=== PATIENT | male | born 1985 | race Two or more races ===

== ENCOUNTER → 2023-06-05 09:12 | Outpatient (BNVA) | payer OTHER, SELFPAY | PROVIDERS: Visit Provider Physician Assistant Medical | DX: S06.9X0A Unspecified intracranial injury without loss of consciousness, initial encounter (principal); S16.1XXA Strain of muscle, fascia and tendon at neck level, initial encounter; S33.9XXA Sprain of unspecified parts of lumbar spine and pelvis, initial encounter; W19.XXXA Unspecified fall, initial encounter | CPT/HCPCS: 99203 ==

== ENCOUNTER → 2023-06-12 13:03 | Outpatient (BNVA) | payer OTHER, SELFPAY | PROVIDERS: Visit Provider Physician Assistant Medical | DX: S06.0X0A Concussion without loss of consciousness, initial encounter (principal); S16.1XXA Strain of muscle, fascia and tendon at neck level, initial encounter; S33.9XXA Sprain of unspecified parts of lumbar spine and pelvis, initial encounter; W19.XXXA Unspecified fall, initial encounter | CPT/HCPCS: 99213 ==

== ENCOUNTER → 2023-06-19 13:03 | Outpatient (BNVA) | payer OTHER, SELFPAY | PROVIDERS: PCP Internal Medicine; Visit Provider Physician Assistant Medical | DX: S06.9X0D Unspecified intracranial injury without loss of consciousness, subsequent encounter (principal); S16.1XXD Strain of muscle, fascia and tendon at neck level, subsequent encounter; S33.9XXD Sprain of unspecified parts of lumbar spine and pelvis, subsequent encounter; W19.XXXD Unspecified fall, subsequent encounter | CPT/HCPCS: 99213 ==

== ENCOUNTER → 2023-07-11 12:53 | Outpatient (BNVA) | payer OTHER, SELFPAY | PROVIDERS: PCP Internal Medicine; Visit Provider Physician Assistant Medical | DX: S16.1XXD Strain of muscle, fascia and tendon at neck level, subsequent encounter (principal); S33.9XXD Sprain of unspecified parts of lumbar spine and pelvis, subsequent encounter; W19.XXXD Unspecified fall, subsequent encounter | CPT/HCPCS: 99204 ==

== ENCOUNTER 2023-07-19 16:00 | Outpatient (RCR) | payer OTHER, SELFPAY ==
--- NOTE | 2023-06-21 11:50 | MHC.PT.EP ---
[facility] [place] Office [place] Office [place] Office [address] Beth Love [address] [phone] F: [phone] F: [phone] F: [phone] F: [phone] Physical Therapy Plan of Care Date of Evaluation: 06/21/23 Date of Surgery: Diagnosis: This is a 38 yo male presenting to skilled PT with a script for cervical and lumbar strain. Assessment: This is a 38 yo male presenting to skilled PT with a script for cervical and lumbar strain. Patient is here after an incident at work (05/26/23) when he fell straight onto his back/L side. Pain is located today at the L buttock, L5 region and R side of neck. Pain at all three areas is described as sharp. His pain increases with standing, sitting, and walking (sleep is disrupted as well). His pain improves with medication such as Tylenol. His pain is comes and goes. He is being followed by work connection and returns at the end of the month. He is currently out of work but returns on Sunday, he is unsure whether he will be on light duty. Assessment reveals pain that ranges from up to a 7/10 at the worst. Patient demos decreased cervical, lumbar and BLE ROM, strength of shoulders, c-spine, core and back, TTP at lumbar and low thoracic soft tissues and demos impaired posture from pain with forward head and rounded shoulders. Based on functional limitations, impaired QOL and pain tolerance patient is a good candidate for skilled PT 2x/wk for 4wks. Frequency and Duration: The patient will be seen 2x/wk for 4wks Short Term Goals: Pt will demonstrate improved postural awareness and understanding of core engagement with supine and standing tasks without cues throughout session to improve overall back safety in 2 weeks. Pt will continue to reinforce precautions, sitting, standing and ADL modifications with proper body mechanics in 2 wks. 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 Pt will demonstrate ability to bend and lift WNL min to no pain for household and work related tasks in 4 wks. Pt will be I in HEP and compliant in 4wks. Patient will demo WFL lumbar and cervical AROM in 4wks Treatment Plan: Modalities to reduce pain, spasms and effusion. Manual therapy to restore motion and function. Therapeutic exercise to improve strength and flexibility. Neuromuscular re-education for posture and balance. Therapeutic activities to return to functional activities of daily living. Electronically signed by: Gayathri Barakat PT Please sign and return to therapist. Thank you for your referral.
--- NOTE | 2023-07-27 07:29 | MHC.PT.DC ---
[facility] [place] Office [place] Office [place] Office [address] Beth Love [address] [phone] F: [phone] F: [phone] F: [phone] F: [phone] Physical Therapy Discharge Report Diagnosis: This is a 38 yo male presenting to skilled PT with a script for cervical and lumbar strain. Date of Surgery: Date of Evaluation: 06/21/23 Date of Discharge: 07/27/23 Treatments to Date: 7 Cancellations to Date: 0 No Shows to Date: 0 Discharge Status: Patient Elected to Stop Recommend MD Follow-up Discharge Summary: Pt continues to have pain. I spoke with the patient in regards to his pain and progress with PT. He reports continuation of symptoms but a little improvement. When I asked him if he would like to continue PT or wait to talk with his referring MD he reports that he would like to wait to speak with his MD. He will be put on a PT hold and is awaiting MRI. For now, patient has an HEP to continue on his own. Electronically signed by: Gayathri Barakat, PT Please sign and return to therapist. Thank you for your referral.
== END 2023-07-27 07:30 | disposition home or self-care (01) ==
LOC: HO.PTCHIC 16:00
PROVIDERS: PCP Internal Medicine; Visit Provider Physician Assistant Medical
DX: S16.1XXD Strain of muscle, fascia and tendon at neck level, subsequent encounter (principal); S39.012D Strain of muscle, fascia and tendon of lower back, subsequent encounter
CPT/HCPCS: 97110; 97140; 97162

== ENCOUNTER → 2023-08-01 13:14 | Outpatient (BNVA) | payer OTHER, SELFPAY | PROVIDERS: PCP Internal Medicine; Visit Provider Physician Assistant Medical | DX: S33.9XXD Sprain of unspecified parts of lumbar spine and pelvis, subsequent encounter (principal); W19.XXXD Unspecified fall, subsequent encounter | CPT/HCPCS: 99214 ==

== ENCOUNTER 2023-08-15 10:24 | Outpatient (REF) | payer OTHER, SELFPAY ==
--- NOTE | ~2023-08-15 | XR_ITS ---
EXAMINATION: XR LUMBOSACRAL SPINE CLINICAL INFORMATION: Radiculopathy evaluate disc space is L5-S1. COMPARISON: Radiographs of the sacrum and coccyx of 06/05/2023. TECHNIQUE: 3 views of the lumbosacral spine. FINDINGS: Minimal leftward curvature of the lumbar spine. Mild degenerative changes in the lumbar spine. Facet arthritis in the lower lumbar spine. Limited visualization due to body habitus. Mild multilevel lumbar spondylosis with mild loss of disc space height at L4-L5. XR/XR lumbar spine 2-3V IMPRESSION: 1. Mild multilevel lumbar spondylosis. 2. Facet arthritis in the lower lumbar spine.
== END 2023-08-15 10:25 | disposition home or self-care (01) ==
LOC: HO.HOSX 10:24
PROVIDERS: PCP Internal Medicine; Visit Provider Physical Medicine & Rehabilitation
DX: M54.16 Radiculopathy, lumbar region (principal); M51.26 Other intervertebral disc displacement, lumbar region
CPT/HCPCS: 72100; 99202; 99212

== ENCOUNTER 2023-08-15 10:24 | Outpatient (AMB) | payer OTHER, SELFPAY ==
--- NOTE | 2023-08-15 10:25 | MHC.OFFVIS ---
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 Pt states he is in a lot of back pain. Pt states he is in pain when he is standing and laying down. Pt states he has not tried ice or heat. 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 He had lifted a heavy load and slipped, hitting back of his head and left side of his back. Per [employer] notes, he sustained mild TBI which is now resolved. He tells me today that he has mild headache rarely, lasting 5 minutes if ever. He was referred to us for back pain. This is left sided, radiating to left buttocks but not down to foot. Feels numbness on bottom of his left foot, when he walks. Walks with pain. No foot drop. He had difficulty with bowel movements needing stool softeners. Treatment done so far: NSAIDs therapy History of DM. [facility] Social History Household Members: Family Housing: Apartment Alcohol intake: never Patient Tobacco Use Status: Never used Tobacco Review of Systems Const All systems reviewed & are unremarkable except as noted in HPI and below Physical Exam Constitutional: Patient appears to be in no acute distress, well nourished and well developed. Patient was appropriately conversant and oriented. Good historian. MSK: No specific abnormalities found on inspection of the spine and all extremities. Tender left lumbar paraspinals. SI joint nontender. Lumbar ROM was full. Bilateral hip, knee and ankle ROM WNL. No ligamentous laxity or crepitance. No increased effusion. Straight-leg raising test positive left. FABERE test positive left back pain. Gillet test is negative. Strength is 5/5 in all muscle groups tested. No increased tone noted. Neurological: Neurologic examination of the upper and lower extremities was nonfocal with intact sensation, muscle stretch reflexes and without focal motor deficits . Batista?s negative bilaterally. Babinski was down going bilaterally. Clonus was negative. Gait is non-antalgic without loss of balance. Patient was able to perform heel walk and toe walk. Results Reviewed Results Reviewed: I independently reviewed the results of the following: Sacral xray - last disc space preserved, no other disc spaces can be viewed; SI joints patent Ordering Physician: Abi Foote Date of Service: 06/05/23 Procedure(s): XR sacrum coccyx min 2V Accession Number(s): [id number] cc: Physician,None ; Abi Foote~ EXAMINATION: XR SACRUM AND COCCYX CLINICAL INFORMATION: Tailbone pain after fall. COMPARISON: None available. TECHNIQUE: 2 views of the sacrum and 2 views of the coccyx were obtained. FINDINGS: There are no fractures. No bone, joint or soft tissue abnormality is demonstrated. XR/XR sacrum coccyx min 2V IMPRESSION: Unremarkable sacrum and coccyx examination. I reviewed records from the following: Work connection Assessment & Plan Assessment & Plan (1) Lumbar radiculitis: Code(s): M54.16 - Radiculopathy, lumbar region (2) Lumbar disc herniation: Code(s): M51.26 - Other intervertebral disc displacement, lumbar region Plan Suspicion for left-sided L5-S1 disc herniation/radiculopathy, causing left-sided back pain. numbness on left foot especially with walking, and positive straight leg raise test. Patient had undergone adequate conservative management including [PT] without improvement of condition. It would be reasonable to obtain further imaging such as lumbar x-ray today and lumbar MRI. An MRI would help rule out any serious condition, guide treatment and assess prognosis for recovery. Specifically ruling out left L5-S1 disc herniation and nerve compression. If any seen, treatment would include but not limited to further therapy, epidural injection, and/or refer to neurosurgery. Assessment and plan discussed with patient, and patient was agreeable. All questions were answered thoroughly. Follow-up after MRI. Mila Anders MD, DELPHINE Board Certified, [place] Board [employer] Physical Medicine and Rehabilitation (ABPMR) Board Certified, [place] Board of Electrodiagnostic Medicine (ABEM) Orders: Orders XR lumbar spine 2-3V Today M51.26 - Other intervertebral disc displacement, lumbar region, M54.16 - Radiculopathy, lumbar region MR lumbar spine wo con Today M51.26 - Other intervertebral disc displacement, lumbar region, M54.16 - Radiculopathy, lumbar region Coding Level of Care Code New Pt Level 4 (54513) Diagnoses Lumbar radiculitis M54.16 Lumbar disc herniation M51.26
== END 2023-08-15 11:27 | disposition home or self-care (01) ==
PROVIDERS: PCP Internal Medicine; Visit Provider Physical Medicine & Rehabilitation
DX: M54.16 Radiculopathy, lumbar region (principal); M51.26 Other intervertebral disc displacement, lumbar region
CPT/HCPCS: 99204

== ENCOUNTER → 2023-08-28 10:40 | Outpatient (BNVA) | payer OTHER, SELFPAY | PROVIDERS: PCP Internal Medicine; Visit Provider Physician Assistant Medical | DX: M51.87 Other intervertebral disc disorders, lumbosacral region (principal); S16.1XXD Strain of muscle, fascia and tendon at neck level, subsequent encounter; W19.XXXD Unspecified fall, subsequent encounter | CPT/HCPCS: 99215 ==

== ENCOUNTER → 2023-09-25 09:26 | Outpatient (BNVA) | payer OTHER, SELFPAY | PROVIDERS: Visit Provider Physician Assistant Medical | DX: S39.012D Strain of muscle, fascia and tendon of lower back, subsequent encounter (principal); W19.XXXD Unspecified fall, subsequent encounter; M51.17 Intervertebral disc disorders with radiculopathy, lumbosacral region | CPT/HCPCS: 99213 ==

== ENCOUNTER 2023-10-11 08:00 | Outpatient (RCR) | payer OTHER, SELFPAY ==
--- NOTE | 2023-09-03 13:05 | MHC.PT.EP ---
[facility] Office [place] Office [place] Office [address] Beth Love [address] [phone] F: [phone] F: [phone] F: [phone] F: [phone] Physical Therapy Plan of Care Date of Evaluation: 09/03/23 Date of Surgery: Diagnosis: Cervical Strain Assessment: Patient is a 38 year old R handed male who presents with s/s consistent with cervical strain, neck pain. Pt sustained injury with a fall at work where he landed on his back/head. He works with daily job demands including lifting and carrying. Patient past medical history includes DM. Current impairments include pain, posture, ROM, strength, activity tolerance and functional mobility. Functional limitations include decreased ability to lift, sleep, carry, push, pull, and drive. Patient is motivated with good rehab potential. Skilled PT will address impairments and functional limitations in order to achieve goals. Frequency and Duration: The patient will be seen 2x/week for 5 weeks Short Term Goals: I with HEP -2 weeks c-spine AROM rotation 64 b/l and pain free - 3 weeks Flex and ext AROM WNL - 3 weeks Longterm Goals: Pain free with donning/doffing clothes - 5 weeks NPDI 12% or less - 5 weeks Return to PLOF pain free - 5 weeks Treatment Plan: Modalities to reduce pain, spasms and effusion. Manual therapy to restore motion and function. Therapeutic exercise to improve strength and flexibility. Neuromuscular re-education for posture and balance. Therapeutic activities to return to functional activities of daily living. Electronically signed by: Zeke Rodríguez, PT Please sign and return to therapist. Thank you for your referral.
--- NOTE | 2024-05-21 10:13 | MHC.PT.DC ---
[facility] [place] Office [place] Office [place] Office [address] Beth Love [address] [phone] F: [phone] F: [phone] F: [phone] F: [phone] Physical Therapy Discharge Report Diagnosis: Cervical Strain Date of Surgery: Date of Evaluation: 09/03/23 Date of Discharge: 11/03/23 Treatments to Date: 10 Cancellations to Date: No Shows to Date: Discharge Status: Achieved Goals Independent with HEP Discharge Summary: ; Pt c/s rotation L 66 R 68 degrees. SH ROM WNL. Pt VITAL's are reduced and L c/s tissue is reduced. Pt sees today. Pt DC with HEP. 10/09; Pt c/s mobility is doing well. Pt VITAL are not daily. Relief after manual RX. Pt sees . Pt has 1 remaining vist for PT. 10/04/23: pt has been progressing slowly with reduced s/s in L side of c-spine. AROM rotation 62 to R, 65 to L. ERP to R in L c-spine. 10/02; Pt noted reduced sxs after manual RX. Pt needed v/c with chin tucks. 09/24/23: pt progressing well with postural awareness. good response to manual 09/20/23: pt continues to present with increased tissue tension greater on L. it does relieve with manual intervention. educated given on posture. Pt progressing with decreased muscle tension L c/s muscles. Mobility is good. No c/o pain or VITAL after exs. NV c/s isometrics. Pt reported relief from tissue tension L c/s after RX. Pt c/s mobility is WNL, but c/o pain with movements. felt looser after RX. Pt stated VITAL resolved and Patient is a 38 year old R handed male who presents with s/s consistent with cervical strain, neck pain. Pt sustained injury with a fall at work where he landed on his back/head. He works with daily job demands including lifting and carrying. Patient past medical history includes DM. Current impairments include pain, posture, ROM, strength, activity tolerance and functional mobility. Functional limitations include decreased ability to lift, sleep, carry, push, pull, and drive. Patient is motivated with good rehab potential. Skilled PT will address impairments and functional limitations in order to achieve goals. Electronically signed by: Zeke Rodríguez, PT Please sign and return to therapist. Thank you for your referral.
== END 2024-05-21 10:14 | disposition home or self-care (01) ==
LOC: HO.PTCHIC 08:00
PROVIDERS: Visit Provider Physician Assistant Medical
DX: S16.1XXD Strain of muscle, fascia and tendon at neck level, subsequent encounter (principal)
CPT/HCPCS: 97110; 97140; 97161

== ENCOUNTER → 2023-10-11 09:50 | Outpatient (BNVA) | payer OTHER, SELFPAY | PROVIDERS: Visit Provider Physician Assistant Medical | DX: M54.2 Cervicalgia (principal); M51.17 Intervertebral disc disorders with radiculopathy, lumbosacral region | CPT/HCPCS: 99213; 99214 ==

== ENCOUNTER 2023-10-18 11:06 | Outpatient (AMB) | payer OTHER, SELFPAY ==
--- NOTE | 2023-10-18 11:16 | MHC.OFFVIS ---
Intake Vital Signs 10/18/23 11:29 Height 5 ft 6 in Intake Visit Reasons: OV-Left Shdr Strain/ Lumbar MRI revup Intake Note: Mary Carmen 38 year old male presents today for an MRI review done at [facility] radiology, of lumbar spine. Patient reports no changes in his pain or medical history. Manager Assessment Required: Yes Allergies No Known Allergies Allergy (Verified 10/18/23 11:28) Medication List - Last Reconciled 10/18/23 by Mila Anders MD atorvastatin 80 mg PO DAILY cyclobenzaprine 10 mg PO BEDTIME PRN insulin glargine (Lantus Solostar U-100 Insulin) units subcut lidocaine 5% 1 patch topical DAILY metformin 1,000 mg PO BID naproxen 500 mg PO BID PRN HPI HPI Comments History of Present Illness Details Work injuiry 05/26/23. He had lifted a heavy load and slipped, hitting back of his head and left side of his back. Per [employer] [facility] notes, he sustained mild TBI which is now resolved. He tells me today that he has mild headache rarely, lasting 5 minutes if ever. He was referred to us for back pain. This is left sided, radiating to left buttocks but not down to foot. Feels numbness on bottom of his left foot, when he walks. Walks with pain. No foot drop. He had difficulty with bowel movements needing stool softeners. Treatment done so far: NSAIDs therapy History of DM. Here for MRI review. Report obtained from [facility] MRI. Left paracentral disc protrusion L5-S1 narrowing spinal canal and crowding left S1 nerve root. Other degenerative changes seen at L4-5 and L5-S1. Patient says back pain is the same, still radiating to left. With left foot numbness. He says he has an appointment this month for DIANE. [facility] Social History Household Members: Family Housing: Apartment Alcohol intake: never Patient Tobacco Use Status: Never used Tobacco Physical Exam Constitutional: Patient appears to be in no acute distress, well nourished and well developed. Patient was appropriately conversant and oriented. MSK: No specific abnormalities found on inspection of the spine and all extremities. No tenderness over lumbar paraspinals. SI joint nontender. Lumbar ROM was full. Bilateral hip, knee and ankle ROM WNL. No ligamentous laxity or crepitance. No increased effusion. Straight-leg raising test positive left. FABERE test positive left back pain. Strength is 5/5 in all muscle groups tested. No increased tone noted. Neurological: Neurologic examination of the upper and lower extremities was nonfocal with intact sensation, muscle stretch reflexes and without focal motor deficits . Batista?s negative bilaterally. Babinski was down going bilaterally. Clonus was negative. Gait is non-antalgic without loss of balance. Results Reviewed Results Reviewed: MRI report as above. Ordering Physician: Abi Foote Date of Service: 06/05/23 Procedure(s): XR sacrum coccyx min 2V Accession Number(s): [id number] cc: Physician,None ; Abi Foote~ EXAMINATION: XR SACRUM AND COCCYX CLINICAL INFORMATION: Tailbone pain after fall. COMPARISON: None available. TECHNIQUE: 2 views of the sacrum and 2 views of the coccyx were obtained. FINDINGS: There are no fractures. No bone, joint or soft tissue abnormality is demonstrated. XR/XR sacrum coccyx min 2V IMPRESSION: Unremarkable sacrum and coccyx examination. I reviewed records from the following: Work connection Assessment & Plan Assessment & Plan (1) Lumbar disc herniation: Code(s): M51.26 - Other intervertebral disc displacement, lumbar region (2) Lumbar radiculitis: Code(s): M54.16 - Radiculopathy, lumbar region Plan Discussed MRI results. Consistent with his symptoms of left L5 radiculitis. I believe he may benefit from an L5-S1 epidural injection, interlaminar or even TFE approach left side. Offered to refer him to Pain Management for the injections but he defers. Looks like he is schedule for an DIANE and he wants to wait for that. Assessment and plan discussed with patient, and patient was agreeable. All questions were answered thoroughly. Mila Anders MD, DELPHINE Board Certified, [place] Board of Physical Medicine and Rehabilitation (ABPMR) Board Certified, [place] Board of Electrodiagnostic Medicine (ABEM) Coding Level of Care Code Est Pt Level 3 (84352) Diagnoses Lumbar disc herniation M51.26 Lumbar radiculitis M54.16
== END 2023-10-18 11:37 | disposition home or self-care (01) ==
PROVIDERS: Visit Provider Physical Medicine & Rehabilitation
DX: M51.26 Other intervertebral disc displacement, lumbar region (principal); M54.16 Radiculopathy, lumbar region
CPT/HCPCS: 99213

== ENCOUNTER → 2023-10-18 11:15 | Outpatient (BNVA) | payer OTHER, SELFPAY | PROVIDERS: Visit Provider Physical Medicine & Rehabilitation | DX: M51.26 Other intervertebral disc displacement, lumbar region (principal); M54.16 Radiculopathy, lumbar region | CPT/HCPCS: 99212 ==

== ENCOUNTER → 2023-12-24 13:08 | Outpatient (BNVA) | payer OTHER, SELFPAY | PROVIDERS: Visit Provider Physician Assistant Medical | DX: M54.2 Cervicalgia (principal); M54.12 Radiculopathy, cervical region | CPT/HCPCS: 99214 ==